=== PATIENT | female | born 1940 | race Caucasian/White ===

== ENCOUNTER 2017-12-07 14:37 | Observation (INO) | payer MEDICARE ==
[~2017-12-07] VITALS: Ht 160 cm; Wt 60.8 kg
[~2017-12-07 14:37] MED LIST: FIORINAL CAPSU1 EACH PO; IMODIUM; NORCO 10-325 T1 EACH; Z.0.DIAZEPAM5 MG PO; Z.0.PREMARIN1.25 MG PO; Z.0.ZOLOFT50 MG PO
[2017-12-07] MEDS ORDERED: ALBUTEROL SULF 0.083% NEB SOLN 3 ML NEB NEB STA (14:40)
[2017-12-07] MEDS ORDERED: IPRATROPIUM BROMIDE 0.02% 2.5 ML NEB NEB STA (14:40)
[2017-12-07] MEDS ORDERED: METHYLPREDNISOLONE SOD SUCC 125 MG/2ML VIAL IM STA ×2 (14:40→15:04)
[2017-12-07 14:53] LABS: BASOPHILS # (AUTO) 0.1 (0.0-0.1); BASOPHILS % 0.5 % (0.0-1.0); EOSINOPHILS # (AUTO) 0.3 (0.0-0.4); EOSINOPHILS % 2.4 % (0.0-6.0); HEMOGLOBIN 15.5 g/dL (12.0-16.0); LYMPHOCYTES # (AUTO) 2.4 (1.0-3.2); LYMPHOCYTES % 22.6 % (18.0-39.1); MEAN CORPUSCULAR HEMOGLOBIN 27.2 pg (28-32); MEAN CORPUSCULAR VOLUME 87.7 fL (81-99); MONOCYTES # (AUTO) 0.8 (0.2-0.8); MONOCYTES % 7.8 % (4.4-11.3); NEUTROPHILS # (AUTO) 6.9 (2.1-6.9); NEUTROPHILS % 66.4 % (38.7-80.0); PLATELET COUNT 137 x10e3/uL (140-360); RED CELL DISTRIBUTION WIDTH 15.5 % (11.7-14.4)
[2017-12-07] MEDS ORDERED: METHYLPREDNISOLONE SOD SUCC 125 MG/2ML VIAL IV STA (15:04)
[2017-12-07 15:11] LABS: ALANINE AMINOTRANSFERASE 16 IU/L (0-55); ALBUMIN 4.7 g/dL (3.5-5.0); ALBUMIN/GLOBULIN RATIO 1.3 (0.8-2.0); ALKALINE PHOSPHATASE 96 IU/L (40-150); ANION GAP 17.7 mmol/L (8-16); BLOOD UREA NITROGEN 10 mg/dL (7-26); BUN/CREATININE RATIO 13 (6-25); CALCIUM 9.5 mg/dL (8.4-10.2); CARBON DIOXIDE 21 mmol/L (22-29); CHLORIDE 107 mmol/L (98-107); CREATININE, SERUM 0.75 mg/dL (0.57-1.11); EST GLOMERULAR FILTRATION RATE > 60 ML/MIN (60-); GLUCOSE 108 mg/dL (74-118); POTASSIUM 3.7 mmol/L (3.5-5.1); SODIUM 142 mmol/L (136-145)
[2017-12-07] MEDS ORDERED: HYDROCODONE/APAP 5MG-325MG TAB PO ONE (15:15)
--- NOTE | 2017-12-07 15:29 | Diagnostic Imaging Report ---
PROCEDURE: A single AP view of the chest. COMPARISON: Patients [facility], [place], , CHEST SINGLE (PORTABLE), 04/02/2017, 8:22. INDICATIONS: SEVERE SHORTNESS OF BREATH FINDINGS: Lines/tubes: None. Lungs: The lungs are well inflated and grossly clear. There is no evidence of pneumonia or pulmonary edema. Pleura: There is no pleural effusion or pneumothorax. Heart and mediastinum: Cardiac silhouette is unremarkable. Pulmonary vasculature is normal. Bones: No acute bony abnormality. Stable partially visualized neural stimulator wires projecting in the mid thoracic spine IMPRESSION: 1. No acute cardiopulmonary abnormalities. Manolo Elizalde M.D. Dictated by: Manolo Elizalde M.D. on 12/07/2017 at 15:28 Electronically approved by: Manolo Elizalde M.D. on 12/07/2017 at 15:28
[2017-12-07] MEDS ORDERED: ZOLOFT50 MG PO (18:29)
[2017-12-07 18:33] LABS: CREATINE KINASE 84 IU/L (29-168)
[2017-12-07] MEDS ORDERED: SYMBICORT 80-10.2 GM INH (18:34)
[2017-12-07] MEDS: SODIUM CHLORIDE 0.9% 1000ML 1,000 ML IV SCH (19:12)
--- OUTSIDE RECORDS SUMMARY | 2017-12-07 19:30 | XMS REPORT ---
Author Author [facility] Address Unknown Phone Unavailable Care Team Providers Care Sports Athletic Trainer Name Role Phone FERN SANDOVAL Unavailable Unavailable Problems This patient has no known problems. Allergies, Adverse Reactions, Alerts This patient has no known allergies or adverse reactions. Medications This patient has no known medications. Results Test Description Test Time Test Comments Text Results Atomic Results Result Comments CHEST SINGLE (PORTABLE) [place] [id number] Patient Name: ANA MARIA DOBBINS MR #: [id number] : 1940 Age/Sex: 77/F Req #: [id number] Adm Physician: Ordered by: FERN SANDOVAL MD Report #: [id number] Location: ER Room/Bed: Procedure: [id number] DX/CHEST SINGLE (PORTABLE) Exam Date: 12/07/17 Exam Time: 1420 REPORT STATUS: Signed PROCEDURE: A single AP view of the chest. COMPARISON: [facility], , CHEST SINGLE (PORTABLE), 04/02/2017, 8:22. INDICATIONS: SEVERE SHORTNESS OF BREATH FINDINGS: Lines/tubes: None. Lungs: The lungs are well inflated and grossly clear. There is no evidence of pneumonia or pulmonary edema. Pleura: There is no pleural effusion or pneumothorax. Heart and mediastinum: Cardiac silhouette is unremarkable. Pulmonary vasculature is normal. Bones: No acute bony abnormality. Stable partially visualized neural stimulator wires projecting in the mid thoracic spine IMPRESSION: 1. No acute cardiopulmonary abnormalities. Willow Clinton M.D. Dictated by: Willow Clinton M.D. on 12/07/2017 at 15:28 Electronically approved by: Willow Clinton M.D. on 12/07/2017 at 15:28 Dictated By: WILLOW CLINTON MD [id number] Transcribed By: RENA on 12/07/17 1528 COPY TO: FERN SANDOVAL MD
[2017-12-07] MEDS: ALBUTEROL/IPRATROPIUM 3 ML NEB NEB SCH ×2 (19:55→23:40)
[2017-12-07] MEDS: METHYLPREDNISOLONE SOD SUCC 40 MG/ML VIAL IV SCH (20:30)
[2017-12-07] MEDS ORDERED: HYDRALAZINE HCL 20 MG/ML VIAL IV PRN (21:00)
[2017-12-08] VITALS: BP 136/77
[2017-12-08 00:28] VITALS: BP_SYST 135; BP_SYST 136; BP_DIAS 45; BP_DIAS 77
[2017-12-08] MEDS: SODIUM CHLORIDE 0.9% 1000ML 1,000 ML IV SCH ×2 (03:15→09:46)
[2017-12-08] MEDS: ALBUTEROL/IPRATROPIUM 3 ML NEB NEB SCH ×4 (03:15→14:45)
[2017-12-08] MEDS: METHYLPREDNISOLONE SOD SUCC 40 MG/ML VIAL IV SCH ×2 (03:15→09:38)
[2017-12-08 04:00] VITALS: BP 155/84
[2017-12-08] MEDS ORDERED: ACETAMIN/BUTALBITAL/CAFFEINE TAB PO PRN (06:00)
[2017-12-08] MEDS ORDERED: LEVOFLOXACIN 500 MG TAB PO SCH (06:00)
[2017-12-08 07:19] LABS: BASOPHILS % 0.1 % (0.0-1.0); HEMATOCRIT 43.4 % (34.2-44.1); HEMOGLOBIN 13.8 g/dL (12.0-16.0); LYMPHOCYTES # (AUTO) 0.7 (1.0-3.2); LYMPHOCYTES % 9.5 % (18.0-39.1); MEAN CORPUSCULAR HEMOGLOBIN 27.2 pg (28-32); MEAN CORPUSCULAR HGB CONC 31.8 g/dL (31-35); MEAN CORPUSCULAR VOLUME 85.6 fL (81-99); MONOCYTES # (AUTO) 0.2 (0.2-0.8); MONOCYTES % 2.2 % (4.4-11.3); NEUTROPHILS # (AUTO) 6.5 (2.1-6.9); NEUTROPHILS % 87.1 % (38.7-80.0); PLATELET COUNT 140 x10e3/uL (140-360); RED BLOOD COUNT 5.07 x10e6/uL (3.6-5.1); RED CELL DISTRIBUTION WIDTH 15.7 % (11.7-14.4)
[2017-12-08 07:36] LABS: ANION GAP 13.1 mmol/L (8-16); BLOOD UREA NITROGEN 10 mg/dL (7-26); BUN/CREATININE RATIO 16 (6-25); CALCIUM 9.2 mg/dL (8.4-10.2); CARBON DIOXIDE 23 mmol/L (22-29); CHLORIDE 111 mmol/L (98-107); CREATINE KINASE 124 IU/L (29-168); CREATININE, SERUM 0.62 mg/dL (0.57-1.11); EST GLOMERULAR FILTRATION RATE > 60 ML/MIN (60-); GLUCOSE 140 mg/dL (74-118); POTASSIUM 4.1 mmol/L (3.5-5.1); SODIUM 143 mmol/L (136-145)
[2017-12-08 08:47] VITALS: BP 127/78
[2017-12-08 13:04] VITALS: BP 142/84
[2017-12-08 16:05] VITALS: BP 142/84
== END 2017-12-08 16:09 | disposition home or self-care (01) ==
LOC: ER 14:41 → ERHOLD 18:06 → IMCU 23:35
PROVIDERS: ADMIT Internal Medicine; ATTEND Internal Medicine
DX: J45.41 Moderate persistent asthma with (acute) exacerbation (principal); I10 Essential (primary) hypertension; R09.02 Hypoxemia
CPT/HCPCS: 36415 ×2; 71045; 80048; 80053; 82550 ×2; 82553 ×2; 83880; 84484 ×2; 85025 ×2; 92950 ×2; 93005; 94640 ×4; 99285; G0378 ×2; J2920 ×2; J7030

== ENCOUNTER 2018-01-05 06:32 | Inpatient (IN) | payer MEDICARE ==
[~2018-01-05] VITALS: Ht 160 cm; Wt 61.2 kg
[~2018-01-05 06:32] MED LIST changes: +SYMBICORT 80-10.2 GM INH; +ZOLOFT50 MG PO
[2018-01-05] MEDS ORDERED: SODIUM CHLORIDE 0.9% 1000ML 1,000 ML IV STA (06:36)
[2018-01-05] MEDS ORDERED: ALBUTEROL SULF 0.083% NEB SOLN 3 ML NEB NEB STA (06:36)
[2018-01-05] MEDS ORDERED: METHYLPREDNISOLONE SOD SUCC 125 MG/2ML VIAL IV STA (06:36)
--- OUTSIDE RECORDS SUMMARY | 2018-01-05 06:36 | XMS REPORT | Continuity of Care Document ---
Author Author [facility] Organization [facility] Address [address] [place] [address] Phone Unavailable Care Team Providers Care Business Law Instructor Name Role Phone NANY JIMENEZ MD PCP Insurance Providers Guarantor Sindhu Dobbins Address [address] [place] [address] Email [email or web address] Payer Medicare A & B Policy Number [id number] Subscriber's Name Sindhu Dobbins Relationship 18 Self / Same As Patient Group Name RETIRED Effective Date 03 Advance Directives Directive Response Recorded Date/Time Does the patient have an advance directive? No 12/08/17 12:41am If yes, is advance directive on file with [facility]? No 12/08/17 12:41am If not on file with [facility] will patient provide a copy? Yes 12/08/17 12:41am Do you have a Directive to Physician? No 12/07/17 7:17pm Do you have a Medical Power of Wire Frame Dipper? No 12/07/17 7:17pm Do you have an out of hospital Do Not Resuscitate Order? No 12/07/17 7:17pm Do you have any special needs we should be aware of? No 12/07/17 7:17pm Do you have a support person here with you today? Yes 12/07/17 7:17pm Did patient receive Notice of Privacy Practices? Yes 12/07/17 7:17pm Did patient receive patient rights and responsibilities? Yes 12/07/17 7:17pm Problems Medical Problem Onset Date Status Bronchitis Unknown Acute COPD exacerbation Unknown Medications Current Home Medications Medication Dose Units Route Directions Days Qty Instructions Start Date Budesonide/Formoterol Fumarate (Symbicort 80-4.5 Mcg Inhaler) 10.2 Gm Hfa.aer.ad 2 Each Inhalation Twice A Day Butalbital/Aspirin/Caffeine (Fiorinal Capsule) 1 Each Capsule 1 Each Oral as needed Diazepam 5 Mg Tablet 5 Mg Oral 1/2 Prn Imodium as needed Sertraline Hcl (Zoloft) 50 Mg Tablet 100 Mg Oral Daily 30 Tab Past Home Medications Medication Directions Ordered Status Estrogens,Conjugated (Premarin) 1.25 Mg Tablet, 1.25 Mg Oral Daily Discontinued Hydrocodone Bit/Acetaminophen (Jamul 10-325 Tablet) 1 Each Tablet, as needed Discontinued Social History Social History Problem Response Recorded Date/Time Onset Date Status Hx Psychiatric Problems No 12/08/2017 12:41am Not Applicable Not Applicable Hx Depression Yes 12/08/2017 12:41am Not Applicable Not Applicable Hx Alcohol Use No 12/08/2017 12:41am Not Applicable Not Applicable Hx Substance Use Treatment No 12/08/2017 12:41am Not Applicable Not Applicable Smoking Status Start Date Stop Date Never Smoker Hospital Discharge Instructions No hospital discharge instruction information available. Plan of Care Discharge Date 12/08/17 4:09pm Disposition HOME, SELF-CARE Instructions/Education Provided COPD Prescriptions See Medication Section Referrals INO BARNEY MD (Internal Medicine) Entered Date: 12/08/2017 3:26pm Address: [address] [place] [id number] Additional Instructions/Education follow up with PCP/Dr Barney after discharge continue taking medications as prescribed Functional Status Query Response Date Recorded Assistive Devices None December 08, 2017 12:28am Ambulation Ability 1 person assist December 08, 2017 12:28am Toileting Ability Minimum Assistance December 08, 2017 12:28am Allergies, Adverse Reactions, Alerts Allergen Type Severity Reaction Status Last Updated Penicillin Allergy Mild SWELLING,ITCHING,REDNESS Active 04/02/17 Tiotropium Allergy Unknown SEVERE Active 12/07/17 Immunizations No immunization information available. Vital Signs Acute Vital Signs Vital Response Date/Time Temperature (Fahrenheit) 97.7 degrees F (97.6 - 99.5) 12/08/2017 4:05pm Pulse Pulse Rate (adult) 117 bpm (60 - 90) 12/08/2017 4:05pm Respiratory Rate 18 bpm (12 - 24) 12/08/2017 4:05pm Blood Pressure 142/84 mm Hg 12/08/2017 4:05pm Height 5 ft 3 in 12/07/2017 2:40pm Weight 134 lb 12/08/2017 8:48am Body Mass Index 23.7 kg/m^2 12/08/2017 8:48am Results Laboratory Results Test Name Result Units Flags Reference Collection Date/Time Result Date/ Time Comments Prothrombin Time 12.2 seconds 11.9-14.5 04/02/2017 8:40am 04/02/2017 10 :15am Prothromb Time International Ratio 0.86 04/02/2017 8:40am 2016 10:15am Oral Anticoagulant Therapy INR Values: 1. Low Intensity Therapy 1.5 - 2.0 2. Moderate Intensity Therapy 2.0 - 3.0 3. High Intensity Therapy(1) 2.5 - 3.5 4. High Intensity Therapy(2) 3.0 - 4.0 5. Panic Value INR > 5.0 Activated Partial Thromboplast Time 30.2 seconds 23.8-35.5 04/02/2017 8: 40am 04/02/2017 10:15am Urine Color YELLOW YELLOW 04/02/2017 9:48am 04/02/2017 10:15am Urine Clarity CLEAR CLEAR 04/02/2017 9:48am 04/02/2017 10:15am Urine Specific [place]y 1.005 L 1.010-1.025 04/02/2017 9:48am 2016 10:15am Urine pH 7 5 - 7 04/02/2017 9:48am 04/02/2017 10:15am Urine Leukocyte Esterase NEGATIVE NEGATIVE 04/02/2017 9:48am 2016 10:15am Urine Nitrite NEGATIVE NEGATIVE 04/02/2017 9:48am 04/02/2017 10:15am Urine Protein NEGATIVE NEGATIVE 04/02/2017 9:48am 04/02/2017 10:15am Urine Glucose (UA) NEGATIVE NEGATIVE 04/02/2017 9:48am 04/02/2017 10: 15am Urine Ketones NEGATIVE NEGATIVE 04/02/2017 9:48am 04/02/2017 10:15am Urine Urobilinogen 0.2 mg/dL 0.2 - 1 04/02/2017 9:48am 04/02/2017 10: 15am Urine Bilirubin NEGATIVE NEGATIVE 04/02/2017 9:48am 04/02/2017 10: 15am Urine Blood NEGATIVE NEGATIVE 04/02/2017 9:48am 04/02/2017 10:15am Urine WBC 0-5 /HPF 0-5 04/02/2017 9:48am 04/02/2017 10:19am Urine RBC 0-5 /HPF 0-5 04/02/2017 9:48am 04/02/2017 10:19am Urine Bacteria RARE /HPF NONE 04/02/2017 9:48am 04/02/2017 10:19am Urine Epithelial Cells RARE /LPF NONE 04/02/2017 9:48am 04/02/2017 10: 19am White Blood Count 7.40 x10e3/uL 4.8-10.8 12/08/2017 6:08am 12/08/2017 7 :25am Red Blood Count 5.07 x10e6/uL 3.6-5.1 12/08/2017 6:08am 12/08/2017 7: 25am Hemoglobin 13.8 g/dL 12.0-16.0 12/08/2017 6:08am 12/08/2017 7:25am Hematocrit 43.4 % 34.2-44.1 12/08/2017 6:08am 12/08/2017 7:25am Mean Corpuscular Volume 85.6 fL 81-99 12/08/2017 6:08am 12/08/2017 7: 25am Mean Corpuscular Hemoglobin 27.2 pg L 28-32 12/08/2017 6:08am 2017 7:25am Mean Corpuscular Hemoglobin Concent 31.8 g/dL 31-35 12/08/2017 6:12/08/2017 7:25am Red Cell Distribution Width 15.7 % H 11.7-14.4 12/08/2017 6:2017 7:25am Platelet Count 140 x10e3/uL 140-360 12/08/2017 6:12/08/2017 7: 25am Neutrophils (%) (Auto) 87.1 % H 38.7-80.0 12/08/2017 6:12/08/2017 7 :25am Lymphocytes (%) (Auto) 9.5 % L 18.0-39.1 12/08/2017 6:12/08/2017 7: 25am Monocytes (%) (Auto) 2.2 % L 4.4-11.3 12/08/2017 6:12/08/2017 7: 25am Eosinophils (%) (Auto) 0.0 % 0.0-6.0 12/08/2017 6:12/08/2017 7: 25am Basophils (%) (Auto) 0.1 % 0.0-1.0 12/08/2017 6:12/08/2017 7:25am IM GRANULOCYTES % 1.1 % H 0.0-1.0 12/08/2017 6:12/08/2017 7:25am Neutrophils # (Auto) 6.5 2.1-6.9 12/08/2017 6:12/08/2017 7:25am Lymphocytes # (Auto) 0.7 L 1.0-3.2 12/08/2017 6:12/08/2017 7: 25am Monocytes # (Auto) 0.2 0.2-0.8 12/08/2017 6:12/08/2017 7:25am Eosinophils # (Auto) 0.0 0.0-0.4 12/08/2017 6:12/08/2017 7:25am Basophils # (Auto) 0.0 0.0-0.1 12/08/2017 6:12/08/2017 7:25am Absolute Immature Granulocyte (auto 0.08 x10e3/uL 0-0.1 12/08/2017 6: 12/08/2017 7:25am Sodium Level 143 mmol/L 136-145 12/08/2017 6:05am 12/08/2017 7:52am Potassium Level 4.1 mmol/L 3.5-5.1 12/08/2017 6:05am 12/08/2017 7:52am Chloride Level 111 mmol/L H 98-107 12/08/2017 6:05am 12/08/2017 7:52am Carbon Dioxide Level 23 mmol/L 22-29 12/08/2017 6:05am 12/08/2017 7: 52am Anion Gap 13.1 mmol/L 8-12/08/2017 6:05am 12/08/2017 7:52am Blood Urea Nitrogen 10 mg/dL 712/08/2017 6:05am 12/08/2017 7:52am Creatinine 0.62 mg/dL 0.57-1.11 12/08/2017 6:05am 12/08/2017 7:52am BUN/Creatinine Ratio 16 6-12/08/2017 6:05am 12/08/2017 7:52am Estimat Glomerular Filtration Rate > 60 ML/MIN 6012/08/2017 6:05 7:52am Ranges were taken from the National Kidney Disease Education Program and the National Kidney Foundation literature. Reference ranges: 60 or greater: Normal 16-59 (for 3 consecutive months): Chronic kidney disease 15 or less: Kidney failure Glucose Level 140 mg/dL H 74-118 12/08/2017 6:05am 12/08/2017 7:52am Calcium Level 9.2 mg/dL 8.4-10.2 12/08/2017 6:05am 12/08/2017 7:52am Total Bilirubin 0.4 mg/dL 0.2-1.2 12/07/2017 2:40pm 12/07/2017 3:14pm Aspartate Amino Transf (AST/SGOT) 25 IU/L 5-34 12/07/2017 2:40pm 2017 3:14pm Alanine Aminotransferase (ALT/SGPT) 16 IU/L 0-55 12/07/2017 2:40pm 3:14pm Total Protein 8.2 g/dL H 6.5-8.1 12/07/2017 2:40pm 12/07/2017 3:14pm Albumin 4.7 g/dL 3.5-5.0 12/07/2017 2:40pm 12/07/2017 3:14pm Globulin 3.5 g/dL 2.3-3.5 12/07/2017 2:40pm 12/07/2017 3:14pm Albumin/Globulin Ratio 1.3 0.8-2.0 12/07/2017 2:40pm 12/07/2017 3: 14pm Alkaline Phosphatase 96 IU/L 40-150 12/07/2017 2:40pm 12/07/2017 3: 14pm B-Type Natriuretic Peptide 92.1 pg/mL 0-100 12/07/2017 2:40pm 2017 3:28pm Creatine Kinase 124 IU/L 29-168 12/08/2017 6:05am 12/08/2017 7:52am Creatine Kinase MB 5.50 ng/mL H 0-5.0 12/08/2017 6:05am 12/08/2017 8: 31am Troponin I 0.14 ng/mL 0.0-0.78 12/08/2017 6:05am 12/08/2017 8:31am Procedures No procedure information available. Encounters Encounter Location Arrival/Admit Date Discharge/Depart Date Attending Provider Discharged Inpatient (obs) [facility] 12/07/17 6:06pm 4:09pm INO BARNEY MD Departed Emergency Room [facility] 04/02/17 7:46am 11:18am MARLINE GARCIA MD Departed Emergency Room [facility] 03/27/17 11:30am 03/27 3:00pm FERN SANDOVAL MD
[2018-01-05] MEDS ORDERED: METHYLPREDNISOLONE SOD SUCC 125 MG/2ML VIAL ONE (06:41)
[2018-01-05] MEDS ORDERED: IPRATROPIUM BROMIDE 0.02% 2.5 ML NEB NEB ONE (06:45)
[2018-01-05 07:00] LABS: BASOPHILS % 0.2 % (0.0-1.0); EOSINOPHILS # (AUTO) 0.6 (0.0-0.4); HEMATOCRIT 46.5 % (34.2-44.1); HEMOGLOBIN 14.5 g/dL (12.0-16.0); LYMPHOCYTES # (AUTO) 2.9 (1.0-3.2); LYMPHOCYTES % 23.8 % (18.0-39.1); MEAN CORPUSCULAR HEMOGLOBIN 27.9 pg (28-32); MEAN CORPUSCULAR HGB CONC 31.2 g/dL (31-35); MEAN CORPUSCULAR VOLUME 89.4 fL (81-99); MONOCYTES % 8.4 % (4.4-11.3); NEUTROPHILS # (AUTO) 7.5 (2.1-6.9); NEUTROPHILS % 62.4 % (38.7-80.0); PLATELET COUNT 152 x10e3/uL (140-360); RED CELL DISTRIBUTION WIDTH 14.9 % (11.7-14.4)
[2018-01-05] MEDS ORDERED: AZITHROMYCIN 500MG/NS 250 ML 250 ML IV STA (07:03)
[2018-01-05] MEDS ORDERED: CEFTRIAXONE SOD 1 GM VIAL IV STA (07:03)
--- NOTE | 2018-01-05 07:03 | Diagnostic Imaging Report ---
CHEST SINGLE (PORTABLE), 01/05/2018 6:36 AM Technique: CHEST SINGLE (PORTABLE) Comparison: 04/02/2017 Clinical history: Cough, shortness of breath Findings: Stable portable appearance of the heart, mediastinum, lungs, and pleural spaces. Neurostimulator leads are noted overlying the thoracic spine. Impression: 1. Stable cardiomediastinal silhouette. 2. No consolidation or edema. No effusion or pneumothorax. Signed by: Dr Mary Ann Jane MD on 01/05/2018 7:00 AM
[2018-01-05 07:08] LABS: INR 0.94; PARTIAL THROMBOPLASTIN TIME 26.4 seconds (23.8-35.5); PROTHROMBIN TIME 11.8 seconds (11.9-14.5)
[2018-01-05 07:16] LABS: ALANINE AMINOTRANSFERASE 18 IU/L (0-55); ALBUMIN 4.5 g/dL (3.5-5.0); ALBUMIN/GLOBULIN RATIO 1.4 (0.8-2.0); ALKALINE PHOSPHATASE 94 IU/L (40-150); ANION GAP 14.4 mmol/L (8-16); BLOOD UREA NITROGEN 8 mg/dL (7-26); BUN/CREATININE RATIO 11 (6-25); CALCIUM 9.4 mg/dL (8.4-10.2); CARBON DIOXIDE 26 mmol/L (22-29); CHLORIDE 102 mmol/L (98-107); CREATINE KINASE 124 IU/L (29-168); CREATININE, SERUM 0.71 mg/dL (0.57-1.11); EST GLOMERULAR FILTRATION RATE > 60 ML/MIN (60-); GLUCOSE 123 mg/dL (74-118); MAGNESIUM 2.3 MG/DL (1.3-2.1); POTASSIUM 3.4 mmol/L (3.5-5.1); SODIUM 139 mmol/L (136-145)
[2018-01-05 07:22] LABS: B-TYPE NATRIURETIC PEPTIDE2 88.3 pg/mL (0-100)
[2018-01-05] MEDS ORDERED: ASPIRIN 81 MG CHEW TAB PO ONE (07:45)
[2018-01-05] MEDS ORDERED: FAMOTIDINE 20 MG/2 ML VIAL IV SCH (07:45)
[2018-01-05] MEDS ORDERED: CEFTRIAXONE SOD 1 GM VIAL IV SCH (07:45)
[2018-01-05] MEDS ORDERED: ALBUTEROL SULF 0.083% NEB SOLN 3 ML NEB NEB PRN (07:45)
[2018-01-05] MEDS ORDERED: POTASSIUM CHLORIDE 20MEQ/15ML UDC PO ONE (07:45)
[2018-01-05] MEDS ORDERED: LEVALBUTEROL HCL SOLN NEBU 1.25 MG/3 ML NEB INH ONE (08:00)
[2018-01-05] MEDS ORDERED: DEXAMETHASONE SOD PHOS 10 MG/1 ML VIAL IV ONE (08:00)
[2018-01-05 08:15] LABS: BILIRUBIN,URINE NEGATIVE (NEGATIVE); KETONES,URINE NEGATIVE (NEGATIVE); LEUKOCYTE ESTERASE ,URINE NEGATIVE (NEGATIVE); NITRITE,URINE NEGATIVE (NEGATIVE); URINE UROBILINOGEN 0.2 mg/dL (0.2 - 1)
[2018-01-05 08:16] LABS: CLARITY,URINE CLEAR (CLEAR); COLOR,URINE YELLOW (YELLOW); PROTEIN,URINE DIPSTICK 1+ (NEGATIVE)
[2018-01-05 08:28] LABS: BACTERIA,URINE FEW /HPF; EPITHELIAL CELLS,URINE FEW /LPF; RBC,URINE 0-5 /HPF (0-5); WBC,URINE (MAN) 0-5 /HPF (0-5)
[2018-01-05] MEDS: ACETAMIN/BUTALBITAL/CAFFEINE TAB PO PRN ×2 (08:40→14:09)
[2018-01-05] MEDS ORDERED: ASPIRIN 81 MG ENTERIC COATED PO SCH (09:00)
[2018-01-05] MEDS ORDERED: AZITHROMYCIN 500MG/NS 250 ML 250 ML IV SCH (09:00)
[2018-01-05 09:12] LABS: ABG HCO3 23 mmol/L (23-28); ABG PCO2 42 mmHg (41-51); ABG PH 7.34 (7.31-7.41); ABG PO2 71 mmHg (80-105)
[2018-01-05 09:30] VITALS: BP 143/80
[2018-01-05 12:34] VITALS: BP 156/79
[2018-01-05] MEDS ORDERED: IPRATROPIUM BROMIDE 0.02% 2.5 ML NEB NEB SCH (13:00)
[2018-01-05] MEDS: METHYLPREDNISOLONE SOD SUCC 125 MG/2ML VIAL IV SCH ×2 (14:18→21:58)
[2018-01-05] MEDS: IPRATROPIUM BROMIDE 0.02% 2.5 ML NEB NEB SCH ×2 (14:24→20:40)
[2018-01-05 16:51] VITALS: BP 137/66
--- NOTE | 2018-01-05 17:16 | Diagnostic Imaging Report ---
EXAM: CT Chest WITHOUT contrast INDICATION: \S\recurrent bronchospasm, r/o bronchiectasis \S\[id number] \S\1604 COMPARISON: Chest x-ray of the same date TECHNIQUE: Chest was scanned utilizing a multidetector helical scanner from the lung apex through the level of the adrenal glands without administration of IV contrast. Absence of intravenous contrast decreases sensitivity for detection of lymphadenopathy and vascular pathology. Coronal and sagittal reformations were obtained. Routine protocol was performed. IV CONTRAST: None COMPLICATIONS: None RADIATION DOSE: Total DLP: 365.15 mGy*cm Estimated effective dose: (DLP x 0.014 x size factor) mSv CTDIvol has been reviewed. It is below the limits set by the Radiation Protocol Committee (RPC). FINDINGS: LINES/ TUBES: Distal leads of spine stimulator device terminates at T8 level. LUNGS AND AIRWAYS: No evidence of bronchiectasis. Bilateral upper lobe small focal areas of groundglass opacity with mild interlobular septal thickening in these areas. Airways are normal. PLEURA: The pleural spaces are clear. HEART AND MEDIASTINUM: The thyroid gland is normal. No mediastinal, hilar or axillary lymphadenopathy. The heart is normal in size.. There is no pericardial effusion. Mitral valve calcification. UPPER ABDOMEN: Unremarkable. BONES: The visualized bony thorax is within normal limits. SOFT TISSUES: Pectus excavatum chest wall deformity. IMPRESSION: Bilateral upper lobe focal areas of groundglass opacity with mild intralobular septal thickening. This may represent bacterial or acute interstitial pneumonia in the appropriate clinical setting. Pulmonary alveolar proteinosis, pulmonary hemorrhage, or drug/radiation-induced pneumonitis are also in the differential considerations, although less likely. No evidence of bronchiectasis. Signed by: Dr. Donis Mast MD on 01/05/2018 5:12 PM
[2018-01-05 17:24] LABS: CREATINE KINASE MB 9.5 ng/mL (0-5.0)
[2018-01-05 20:00] VITALS: BP 138/80
[2018-01-05] MEDS: HEPARIN SOD (PORCINE) 5,000 UNIT/ML VIAL SC SCH (21:00)
[2018-01-06] VITALS (7 sets, daily range): BP systolic 123–147; BP diastolic 58–87
--- NOTE | 2018-01-06 02:58 | Consultation ---
DATE OF CONSULTATION: January 05, 2018 PULMONARY MEDICINE CONSULT REFERRING PHYSICIAN: Dr. Sánchez REASON FOR REFERRAL: Shortness of breath. HISTORY: Ms. Holly is a pleasant 77-year-old female with shortness of breath. Patient with recent spells of shortness of breath. She had spells about 7 months ago. A month ago, she presented to emergency room with shortness of breath, and today she presented again. PATIENT WITH ADULT-ONSET ALLERGIES THAT WERE PROVEN BY PATCH TESTING. However, she never had any breathing issues her entire life. No history of polio. No history of any significant childhood illnesses. She was diagnosed with asthma about 1 year ago. She has daily bronchitis, but mostly clear phlegm. Patient recently on Ventolin, Symbicort 160 two puffs twice a day, and Spiriva. Patient was lifetime nonsmoker and never had significant exposure to biofuels. As patient is scared that she is getting worse, she comes to the emergency room. CT and chest x-ray were done. Chest x-ray was mostly unremarkable on one-view. However, on CAT scan, patient was seen with very small apical ground-glass opacities, borderline bronchiectasis, pectus excavatum abnormality, significant kyphotic configuration of the spine. Echocardiogram done showed 60% to 65% LVEF and was mostly otherwise unremarkable. BNP was 88. ABG, 7.34/42/71. She presents for hospitalization in the inpatient wing, and I am consulted. 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 MEDICATIONS: Medication list reviewed per electronic record. Includes inhalers as above. ALLERGIES: PENICILLINS. SOCIAL HISTORY: No alcohol, no drinking, no drugs. Patient grown up in urban [facility] environment. 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 She lives with her [id number] as her son was killed in 1998. Patient with 4 children total with 3 of them still alive. She is independent in her lifestyle in all matters and does not use any assist devices to ambulate. FAMILY HISTORY: Noncontributory. REVIEW OF SYSTEMS: GENERAL: No weight changes. OPHTHALMOLOGIC: No double vision. ENT: No dry mouth. ENDOCRINE: No known thyroid disease. PULMONARY: No childhood asthma, no hemoptysis. CARDIAC: No KS. GI: No constipation. : No blood in urine. MUSCULOSKELETAL: No known rheumatoid arthritis. There is mild hyperlaxity of a few joints. She is born with a pectus excavatum. IMMUNOLOGIC: No other connective tissue disease is known. PSYCHIATRIC: No active depression now, although there is history of it. OBJECTIVE: VITAL SIGNS: Afebrile, vital signs noted per electronic record. GENERAL: In no acute distress, alert and calm when talking. HEENT: Normocephalic, atraumatic. NECK: Supple. Throat midline. LUNGS: Bilateral air entry is moderate to good, few scant rales, no daphney wheezes. Prolonged expiratory phase. CARDIOVASCULAR: S1 and S2. No murmurs, rubs, or gallops. ABDOMEN: Soft, nontender, although there is mild sensitivity. EXTREMITIES: No clubbing, no cyanosis, no edema. INTEGUMENT: No rash, no purpura. LABS: Include 3.4 potassium, 8 BUN, 0.7 creatinine, 26 bicarbonate. 12 white count, 47 hematocrit, 152,000 platelets. Albumin is 4.5, total protein is 7.8. Lactic acid 21.7. IMPRESSION AND PLAN: 1. Dyspnea, multifactorial. 2. Acute crisis of pulmonary disease. 3. Lactic acid, possibly due to beta-agonist treatment, rule out other condition such as sepsis. 4. Mild uncompensated hypercapnic respiratory acidosis. 5. 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 6. Very mild hypermobility of joints. 7. PROVEN ALLERGIES PER PATCH TESTING HISTORY. 8. Possible asthma with exacerbation. 9. Daily bronchitis. 10. Abnormal chest radiography with bilateral ground-glass small patchy opacities. 11. Tachycardia, not otherwise specified, but appears to be sinus rhythm. 12. History of depression. 13. Arthritis, no high indication of rheumatoid or other connective tissue disease. 14. Also depression and migraines. Continue steroids, but wean rapidly since this may not be an atopy-driven disease that we are dealing with. It will be reasonable to check immunoglobulin E level to assess the extent that this could be atopy driven. Bronchodilators continue. Check a good electrocardiogram with a good baseline to interpret the rhythm. Check thyroid screening given tachycardia. Echocardiogram, right ventricular systolic pressure estimated at 34 mmHg, but she will need serial followup over bindery machine tender of her right heart and pulmonary pressures. Patient requires outpatient polysomnogram to rule out sleep apnea or hypoventilation. She is also recommended for maintenance of physical fitness. For now it is reasonable to treat as possible asthma although as Dr. Sánchez, the primary attending suspects it is not a definite diagnosis. Will continue to follow up closely. The ground-glass opacities in the upper lobes will need repeat computerized tomography scanning in few months to ensure this is not infection or gastroesophageal reflux disease related among other possibilities. Will continue to follow up closely. Thank you very much, Dr. Sánchez for allowing me the chance to participate in the care of Ms. Holly. Please call with any questions. Job#: [id number] DR HINTON
[2018-01-06 06:51] LABS: BASOPHILS % 0.1 % (0.0-1.0); HEMATOCRIT 42.2 % (34.2-44.1); HEMOGLOBIN 13.7 g/dL (12.0-16.0); LYMPHOCYTES # (AUTO) 1.1 (1.0-3.2); LYMPHOCYTES % 7.9 % (18.0-39.1); MEAN CORPUSCULAR HEMOGLOBIN 27.8 pg (28-32); MEAN CORPUSCULAR HGB CONC 32.5 g/dL (31-35); MEAN CORPUSCULAR VOLUME 85.6 fL (81-99); MONOCYTES # (AUTO) 0.9 (0.2-0.8); MONOCYTES % 6.9 % (4.4-11.3); NEUTROPHILS # (AUTO) 11.5 (2.1-6.9); NEUTROPHILS % 84.6 % (38.7-80.0); PLATELET COUNT 151 x10e3/uL (140-360); RED BLOOD COUNT 4.93 x10e6/uL (3.6-5.1); RED CELL DISTRIBUTION WIDTH 14.8 % (11.7-14.4)
[2018-01-06 07:16] LABS: ALANINE AMINOTRANSFERASE 15 IU/L (0-55); ALBUMIN 3.5 g/dL (3.5-5.0); ALBUMIN/GLOBULIN RATIO 1.2 (0.8-2.0); ALKALINE PHOSPHATASE 69 IU/L (40-150); ANION GAP 11.8 mmol/L (8-16); BLOOD UREA NITROGEN 17 mg/dL (7-26); BUN/CREATININE RATIO 23 (6-25); CALCIUM 9.7 mg/dL (8.4-10.2); CARBON DIOXIDE 25 mmol/L (22-29); CHLORIDE 104 mmol/L (98-107); CHOL/HDL RATIO 2.6 (3.0-3.6); CHOLESTEROL 222 MD/DL (0-199); CREATININE, SERUM 0.73 mg/dL (0.57-1.11); EST GLOMERULAR FILTRATION RATE > 60 ML/MIN (60-); GLUCOSE 135 mg/dL (74-118); HDL CHOLESTEROL 86 MG/DL (40-60); LDL CHOLESTEROL 115 MG/DL (60-130); MAGNESIUM 2.2 MG/DL (1.3-2.1); PHOSPHORUS 3.3 MG/DL (2.3-4.7); POTASSIUM 3.8 mmol/L (3.5-5.1); SODIUM 137 mmol/L (136-145); TRIGLYCERIDES 105 MG/DL (0-149)
[2018-01-06] MEDS: IPRATROPIUM BROMIDE 0.02% 2.5 ML NEB NEB SCH ×3 (07:21→20:20)
[2018-01-06] MEDS: LEVOFLOXACIN 500MG/D5W 100ML 100 ML IV SCH (08:00)
[2018-01-06] MEDS: HEPARIN SOD (PORCINE) 5,000 UNIT/ML VIAL SC SCH ×2 (09:00→22:01)
[2018-01-06] MEDS: METHYLPREDNISOLONE SOD SUCC 40 MG/ML VIAL IV SCH ×2 (09:00→22:42)
[2018-01-06] MEDS ORDERED: SODIUM CHLORIDE 0.9% 250ML 250 ML ONE (09:51)
--- NOTE | 2018-01-06 13:44 | Progress Note ---
DATE: January 06, 2018 PULMONARY MEDICINE PROGRESS NOTE SUBJECTIVE: Mrs. Holly was seen and examined at bedside. She currently is with 96% oxygen saturation. She is on 2 L per minute by nasal cannula. Patient was not on home oxygen as she did not qualify in the past. Patient feels a little bit better today compared to yesterday citing that there is not a lot of improvement that has gone on. She still has less dyspnea. She is doing less while she is here in the hospital, mainly in bed. REVIEW OF SYSTEMS: No bleeding. No rash. OBJECTIVE VITALS: Afebrile. Vital signs noted per electronic record. GENERAL: No acute distress. Alert and calm. HEENT: Normocephalic and atraumatic. NECK: Supple. Throat midline. LUNGS: Bilateral air entry. Decreased breath sounds minimally. Few rales. CARDIOVASCULAR: S1 and S2. No murmurs, rubs or gallops. ABDOMEN: Soft and nontender. EXTREMITIES: No clubbing. No cyanosis. There is no edema. INTEGUMENT: No rash. No purpura. LABS: Potassium 4.9, BUN 17, creatinine 0.2, bicarbonate 25. White count 13, hematocrit 42, and platelets 141,000. IMPRESSION 1. Exacerbation of pulmonary lung disease. 2. Thoracic cage abnormality, suggested restriction based on computerized tomography assessment. 3. Possible asthma with exacerbation. 4. Allergies, intermittent. 5. Mild uncompensated respiratory acidosis. 6. Possible pneumonia, sepsis. 7. Chronic bronchitis, not otherwise specified. 8. Tachycardia. Will review the EKG. This may be driven by pulmonary disorder. Furthermore, the patient remains on nebulizer treatments intermittently. Continue to wean steroids rapidly. We will follow up the Ig level and the alpha-1 antitrypsin level. Patient will get mobilized and will see how much functionality she has. Will follow along closely. Job#: [id number] [facility]
[2018-01-07 00:16] VITALS: BP 141/78
[2018-01-07] MEDS: IPRATROPIUM BROMIDE 0.02% 2.5 ML NEB NEB SCH ×2 (02:10→06:44)
[2018-01-07 05:03] VITALS: BP 130/77
[2018-01-07 08:00] VITALS: BP 131/74
[2018-01-07] MEDS: METHYLPREDNISOLONE SOD SUCC 40 MG/ML VIAL IV SCH (09:14)
[2018-01-07] MEDS: LEVOFLOXACIN 500MG/D5W 100ML 100 ML IV SCH (09:14)
[2018-01-07] MEDS: HEPARIN SOD (PORCINE) 5,000 UNIT/ML VIAL SC SCH (09:16)
[2018-01-07 10:02] VITALS: BP 131/74
[2018-01-07 12:00] VITALS: BP 140/73
--- NOTE | 2018-01-07 12:11 | Discharge Summary ---
FINAL DIAGNOSIS: Acute respiratory distress. SECONDARY DIAGNOSES 1. Possible pneumonia. 2. 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 3. Possible asthma with exacerbation. CONSULTANTS: Dr. Cao, computer security coordinator. PROCEDURES/STUDIES PERFORMED: Chest computerized tomography. HISTORY: Per H and P. HOSPITAL COURSE: The patient was admitted. Initially, the patient had dry cough and subsequently with nebulizer treatment it became nonproductive. CT scan shows ground-glass opacity in the upper lobes. Will need a repeat CT scan in a few months. The patient responded well to nebulizer treatments, steroids, and antibiotics. I have discussed with Dr. Cao today. Will go ahead and discharge the patient home since she is doing better. She does have nebulizer machine at home. Will give her 3 more days of p.o. Levaquin and Medrol Dosepak. The patient will follow up with her PCP and also her computer security coordinator. The patient was seen and examined today. It took 32 minutes total to discharge this patient. JAYME SAUER M.D. Job#: [id number] [facility]
[2018-01-07] MEDS ORDERED: PREDNIS (13:29)
[2018-01-07] MEDS ORDERED: prednisone PO (13:29)
[2018-01-07] MEDS ORDERED: PREDNISONE 10 MG PO (13:29)
--- NOTE | 2018-01-07 15:13 | Progress Note ---
DATE: January 07, 2018 PULMONARY MEDICINE PROGRESS NOTE SUBJECTIVE: Ms. Holly was seen and examined at bedside. She continues to have steady progress. She feels getting close to baseline now. No overt wheezes. Still with subjective bronchodilator responsiveness with inhalers. I counseled her on future planning regarding avoiding readmissions. The patient continues to eat better. REVIEW OF SYSTEMS: No headaches. No bleeding. OBJECTIVE VITALS: Afebrile. Vital signs noted per electronic record. GENERAL: In no acute distress. Alert and calm. HEENT: Normocephalic and atraumatic. NECK: Supple. Throat midline. LUNGS: Bilateral air entry. No overt wheezes, just mildly decreased breath sounds throughout. CARDIOVASCULAR: S1 and S2. No murmurs, rubs or gallops. ABDOMEN: Soft and nontender. EXTREMITIES: No clubbing. No cyanosis. No edema. INTEGUMENT: No rash. No purpura. IMPRESSION AND PLAN 1. Asthma with exacerbation. 2. Concomitant allergies. 3. Disorder of thoracic cage, functional kyphosis, as well as pectus excavatum abnormality. 4. Low functional endurance. 5. Proven allergies. 6. History of depression. Continue steroid weaning. I gave the patient a backup prednisone prescription after she gets out for emergencies. Continue bronchodilators, Spiriva, Symbicort, and Proair after she leaves. Aggressive exercise and therapy programs recommended after discharge. She will need surveillance of right heart and pulmonary pressures. Outpatient polysomnogram is recommended. Antibiotics are also being given to her to finalize pneumonia treatment. She will need repeat CT radiography in 3-4 months to ensure that this infiltrate resolves. Will follow along closely. Job#: [id number] [employer]
== END 2018-01-07 13:43 | disposition home or self-care (01) | DRG 194 ==
LOC: ER 06:32 → ERHOLD 07:55 → MED/SURG3 09:03
PROVIDERS: ADMIT Internal Medicine; ATTEND Internal Medicine
DX: J18.9 Pneumonia, unspecified organism (principal); J45.41 Moderate persistent asthma with (acute) exacerbation; E87.4 Mixed disorder of acid-base balance; J42 Unspecified chronic bronchitis; F32.9 Major depressive disorder, single episode, unspecified; K21.9 Gastro-esophageal reflux disease without esophagitis; G43.909 Migraine, unspecified, not intractable, without status migrainosus; M16.0 Bilateral primary osteoarthritis of hip; M19.011 Primary osteoarthritis, right shoulder; M40.209 Unspecified kyphosis, site unspecified; Q67.6 Pectus excavatum; R00.0 Tachycardia, unspecified; E87.6 Hypokalemia; Z28.21 Immunization not carried out because of patient refusal; Z88.0 Allergy status to penicillin; Z77.22 Contact with and (suspected) exposure to environmental tobacco smoke (acute) (chronic)
CPT/HCPCS: 36415; 71045; 71250; 80053; 80061; 81001; 82103; 82550; 82553; 82785; 82805; 83605; 83735; 83880; 84100; 84443; 84484; 85025; 85610; 85730; 86431; 87040; 87086; 87400; 93005; 93306; 94640; 96360; 96365; 96372; 96374; 96376; 99284; J0456; J0696; J1100; J1644; J1956; J2920; J2930; J7050

== ENCOUNTER 2019-05-29 17:34 | Emergency (ER) | payer MEDICARE ==
[~2019-05-29] VITALS: Ht 160 cm; Wt 61.2 kg
[~2019-05-29 17:34] MED LIST changes: +PREDNIS; +PREDNISONE 10 MG PO; +prednisone PO
--- OUTSIDE RECORDS SUMMARY | 2019-05-29 17:39 | XMS REPORT | Encounter Summary ---
Author Organization Unknown Address [address] [place] [address] Phone [phone] Care Team Providers Care Metal Checker Name Role Phone Dr. Anshul Vargas 3 [phone] Anshul Vargas MD 3 [phone] Clarence Coughlin MD 107 [phone] Anthony Mccann 114 [phone] [facility] 124 [phone] Reason for Visit Right leg problem; Right knee pain/problem; Right ankle pain Instructions 1. Immunization refused 2. Body mass index 20-24 - normal 3. Depressive disorder Wellbutrin XL 150 mg 24 hr tablet, extended release 4. Pain in right knee 5. Pain of right ankle joint 6. Pruritic rash triamcinolone acetonide 0.1 % topical cream Discussion Note have started additional wellbutrin Patient educational handouts: No information available. Plan of Care Patient Instructions meds as directed rtc 2 weeks Reminders Provider Appointments Return to Office on or around 01/23/2019 Anshul Vargas MD Lab None recorded. Referral None recorded. Procedures None recorded. Surgeries None recorded. Imaging None recorded. Medications Name Start Date Butalbital Compound with Codeine 30 mg-50 mg-325 mg-40 mg capsule TAKE 1 CAPSULE BY MOUTH EVERY DAY NEEDED diazepam 5 mg tablet TAKE 1 TABLET BY MOUTH EVERY DAY NEEDED estradiol 0.5 mg tablet TAKE 1 TABLET BY MOUTH EVERY DAY nystatin 100,000 unit/gram topical cream APPLY TO AFFECTED AREA TWICE A DAY oseltamivir 75 mg capsule Take 1 capsule twice a day by oral route. sertraline 100 mg tablet TAKE 1 TABLET BY MOUTH EVERY DAY Symbicort 160 mcg-4.5 mcg/actuation HFA aerosol inhaler Inhale 2 puffs twice a day by inhalation route for 30 days. triamcinolone acetonide 0.1 % topical cream APPLY A THIN LAYER TO THE AFFECTED AREA(S) BY TOPICAL ROUTE 2 TIMES PER DAY Ventolin HFA 90 mcg/actuation aerosol inhaler INHALE 2 PUFFS BY MOUTH EVERY 4 HOURS Wellbutrin XL 150 mg 24 hr tablet, extended release Take 1 tablet every day by oral route. Medications Administered None recorded. Vitals Height Weight BMI Blood Pressure 5 ft 3 in 122.8 lbs 21.8 kg/m2 134/82 mm[Hg] Lab Results None recorded. Allergies Code Code System Name Reaction Severity Status Onset Penicillins Active Problems Name Status Onset Date Source Depressive Disorder Active Migraine Active Bronchitis Active Asthma Active Generalized Headache Active History of Hormone Replacement (HRT) Active Procedures Date Name Performed by 10/23/2015 Hernia Repair Information not available 10/23/2011 Hand Surgery Information not available 10/23/1979 Hysterectomy (Partial) Information not available 10/23/1970 Tonsilectomy/adenoids Information not available Vaccine List Vaccine Type pneumococcal, unspecified formulation 12/21/2017 Social History Smoking Status Never Smoker Past Encounters 01/09/2019 Immunization Refused; Body Mass Index 20-24 - Normal; Depressive Disorder; Pain in Right Knee; Pain of Right Ankle Joint; Pruritic Rash Anshul Vargas MD: [address] [place] [address], Ph. History of Present Illness Note:1 week h/o R knee /ankle pain controlled with fiorinal with codeine
remains depressed without suicidal/homicidal thoughts,can only tolerate 50 mgs s ertraline
3 yr h/o bilat ant fore leg rash,otc meds ineffective Review of Systems:ROS as noted in the HPI Review of Systems None recorded. Physical Exam General Adult Exam (Female), Musculoskeletal and Joint Exam Reported By: Patient Musculoskeletal:: Right Knee: crepitus; post pain. Right Ankle: ROM good, no objective synovitis, no tenderness, no warmth, no erythema, no pain on palpation Skin: Inspection and palpation: rash; bilat ant foreleg rash
--- OUTSIDE RECORDS SUMMARY | 2019-05-29 17:39 | XMS REPORT | Encounter Summary ---
Author Organization Unknown Address [address] [place] [address] Phone [phone] Reason for Visit Medical Complaint Instructions 1. Allergic rhinitis Medrol (Maciej) 4 mg tablets in a dose pack allergies: care instructions fluticasone 50 mcg/actuation nasal spray,suspension Discussion Note See handout Plan of Care Patient Instructions See handout Reminders Provider Appointments None recorded. Lab None recorded. Referral None recorded. Procedures None recorded. Surgeries None recorded. Imaging None recorded. Medications Name Start Date Butalbital Compound with Codeine 30 mg-50 mg-325 mg-40 mg capsule TK ONE C PO QD estradiol 0.5 mg tablet fluticasone 50 mcg/actuation nasal spray,suspension [place] 2 spray(s) each nostril EVERY DAY by intranasal route. Medrol (Maciej) 4 mg tablets in a dose pack Take by oral route as directed on package methocarbamol 500 mg tablet TK 1 T PO BID tramadol 50 mg tablet Medications Administered None recorded. Vitals Height Weight BMI Blood Pressure 5 ft 3 in 120 lbs 21.3 130/72 Lab Results None recorded. Allergies Name Reaction Severity Onset Penicillins Itching Mild to Moderate Problems Name Status Onset Date Source Allergic Rhinitis Active Encounter Procedures Date Name Performed by Tonsillectomy Information not available Hernia Repair W/mesh Information not available Hysterectomy Information not available Vaccine List None recorded. Social History Smoking Status Never Smoker Past Encounters 09/04/2016 Allergic Rhinitis [facility]EL [facility] [address] [facility] [place] [address], Ph. History of Present Illness Ear Complaint Reported By: Patient HPI: Location: left. Quality: ears feel full/plugged, muffled. Severity: same. Duration: constant. Onset/Timing: still present. Context: no sick contacts, no recent swimming/water in ear, no exposure to second hand smoke, no head trauma, not grinding teeth, no recent air travel. Modifying factors: does not hurt to lie on, or pull on ear, does not hurt to chew, OTC medication. Associated Symptoms: no discharge from the ears, no hearing loss, no nose/sinus problems, no popping noise in the ears, no ringing in the ears, no fever, no chills, no earache, no vertigo, no headache, dizziness Review of Systems:ROS as noted in the HPI Review of Systems Basic Reported By: Patient Physical Exam Adult Basic Constitutional: General Appearance: healthy-appearing, well-nourished, well-developed. Level of Distress: NAD. Ambulation: ambulating normally Psychiatric: Mental Status: active and alert. Orientation: to time, to place, to person Eyes: Lids and Conjunctivae: non-injected, no discharge, no pallor. Pupils: PERRLA. Corneas: grossly intact. Lens: clear. Sclerae: non-icteric. Vision: acuity grossly intact Cmx-Dhhc-Ixwbv-Throat: Ears: no lesions on external ear, no outer ear tenderness, EACs clear, TMs clear, middle ear fluid. Nose: no lesions on external nose, nares patent, no septal deviation, nasal passages clear, no sinus tenderness, no nasal discharge; boggy turbinates. Lips, Teeth, and Gums: no mouth or lip ulcers, no bleeding gums, normal dentition. Oropharynx: moist mucous membranes, no erythema, no exudates, tonsils not enlarged Neck: Lymph Nodes: no cervical LAD, no supraclavicular LAD Lungs: Respiratory effort: no dyspnea, no tachypnea, no use of accessory muscles, no intercostal retractions. Auscultation: breath sounds normal Cardiovascular: Heart Auscultation: RRR, no murmurs Neurologic: Gait and Station: normal gait, normal station Skin: Inspection and palpation: no rash, no lesions, no ulcer, no abnormal nevi, no induration, no nodules, good turgor, no jaundice
--- OUTSIDE RECORDS SUMMARY | 2019-05-29 17:39 | XMS REPORT | Encounter Summary ---
Author Organization Unknown Address [address] [place] [address] Phone [phone] Care Team Providers Care Fuel Verification Technician Name Role Phone Dr. Anshul Vargas 3 [phone] Clarence Coughlin MD 107 [phone] Anthony Mccann 114 [phone] Reason for Visit Asthma; Depressive disorder; skin problem/rash Instructions 1. Asthma Ventolin HFA 90 mcg/actuation aerosol inhaler 2. Depressive disorder sertraline 100 mg tablet 3. Pruritic rash triamcinolone acetonide 0.1 % topical cream 4. At risk for falls preventing falls: care instructions 5. Immunization refused 6. Body mass index 20-24 - normal 7. Restless legs Valium 5 mg tablet Discussion Note: None recorded. Plan of Care Reminders Provider Appointments None recorded. Lab None recorded. Referral None recorded. Procedures None recorded. Surgeries None recorded. Imaging None recorded. Medications Name Start Date bupropion HCl XL 150 mg 24 hr tablet, extended release TAKE 1 TABLET BY MOUTH EVERY DAY Butalbital Compound with Codeine 30 mg-50 mg-325 mg-40 mg capsule TAKE 1 CAPSULE BY MOUTH EVERY DAY NEEDED estradiol 0.5 mg tablet TAKE 1 TABLET BY MOUTH EVERY DAY Imodium PRN nystatin 100,000 unit/gram topical cream APPLY TO AFFECTED AREA TWICE A DAY sertraline 100 mg tablet TAKE 1 TABLET BY MOUTH EVERY DAY Symbicort 160 mcg-4.5 mcg/actuation HFA aerosol inhaler Inhale 2 puffs twice a day by inhalation route for 30 days. triamcinolone acetonide 0.1 % topical cream APPLY A THIN LAYER TO THE AFFECTED AREA(S) BY TOPICAL ROUTE 2 TIMES PER DAY Valium 5 mg tablet Take 1 tablet as needed by oral route. Ventolin HFA 90 mcg/actuation aerosol inhaler INHALE 2 PUFFS BY MOUTH EVERY 4 HOURS Medications Administered None recorded. Vitals Height Weight BMI Blood Pressure 5 ft 3 in 124 lbs 22 kg/m2 130/82 mm[Hg] Lab Results None recorded. Allergies Code [...] History Smoking Status Never Smoker Past Encounters 04/08/2019 Asthma; Depressive Disorder; Pruritic Rash; At Risk for Falls; Immunization Refused; Body Mass Index 20-24 - Normal; Restless Legs Anshul Vargas MD: [address] [place] [address], Ph. History of Present Illness Note:f/u chronic conditions ,needs refill albuterol which controls asthma<div> requesting d/c wellbutrin-not beneficial and resumption sertraline,remains depre ssed without suicidal/homicidal thoughts</div><div>has d/c gabapentin would like to resume valium for restless leg control</div><div>c/o recurrence leg rash < /div> Review of Systems:ROS as noted in the HPI Review of Systems None recorded. Physical Exam Cardiology Exam Reported By: Patient Constitutional: General Appearance: well-developed, appears stated age. Level of Distress: comfortable Psychiatric: Mental Status: alert, normal affect. Orientation: oriented to time, place, and person. Insight: good judgment Eyes: Lids and Conjunctivae: non-injected, anicteric, no discharge, no pallor, no arcus senilis, no xanthelasma. Pupils: PERRLA Neck: Neck: supple, trachea midline, no masses, FROM. Carotid Arteries: bilateral normal upstroke, no bruits, no thrills. Cervical Lymph Nodes: non tender, not enlarged. Thyroid: not enlarged, non tender, no nodules Lungs: Respiratory Effort: unlabored. Chest Exam: normal curvature, no thoracic deformity, no chest wall tenderness. Percussion: resonant. Auscultation: clear, no wheezing, no rales, no rhonchi Cardiovascular: Precordial Exam: non displaced focal PMI, no heaves, no precordial thrills. Rate And Rhythm: regular. Heart Sounds: normal S1, physiologically split S2, no rub, no gallop, no click. Systolic Murmur: not heard. Diastolic Murmur: not heard. Extremities: no cyanosis, no edema, no peripheral signs of emboli Skin: Inspection and Palpation: warm and dry, rash; bl foreleg rash. Nails: no clubbing
--- OUTSIDE RECORDS SUMMARY | 2019-05-29 17:39 | XMS REPORT | Encounter Summary ---
Author Organization Unknown Address [address] [place] [address] Phone [phone] Care Team Providers Care University Professor Name Role Phone Dr. Anshul Vargas 3 [phone] Clarence Coughlin MD 107 [phone] Anthony Mccann 114 [phone] [facility] 124 [phone] Reason for Visit Depressive disorder Instructions 1. Body mass index 20-24 - normal 2. Immunization refused 3. Depressive disorder 4. Pruritic rash 5. Pain in right knee 6. Pain of right ankle joint 7. Restless legs gabapentin 100 mg capsule 8. Migraine Butalbital Compound with Codeine 30 mg-50 mg-325 mg-40 mg capsule Discussion Note: None recorded. Patient educational handouts: No information available. Plan of Care Patient Instructions continue all meds except d/c diazepam,start gabapentin ,rtc 1 month Reminders Provider Appointments Return to Office on or around 02/22/2019 Anshul Vargas MD Lab None recorded. Referral [...] TAKE 1 TABLET BY MOUTH EVERY DAY gabapentin 100 mg capsule 1 capsule at night Imodium PRN nystatin 100,000 unit/gram topical cream APPLY TO AFFECTED AREA TWICE A DAY sertraline 100 mg tablet Take 0.5 tablets every day by oral route. Symbicort 160 mcg-4.5 mcg/actuation HFA aerosol inhaler [...] BMI Blood Pressure 5 ft 3 in 120.8 lbs 21.4 kg/m2 138/70 mm[Hg] Lab Results None recorded. Allergies Code [...] History Smoking Status Never Smoker Past Encounters 01/23/2019 Body Mass Index 20-24 - Normal; Immunization Refused; Depressive Disorder; Pruritic Rash; Pain in Right Knee; Pain of Right Ankle Joint; Restless Legs; Migraine Anshul Vargas MD: [address] [place] [address], Ph. 01/09/2019 Immunization Refused; Body Mass Index 20-24 - Normal; Depressive Disorder; Pain in Right Knee; Pain of Right Ankle Joint; Pruritic Rash Anshul Vargas MD: [address] [place] [address], Ph. History of Present Illness Note:f/u depression /skin rash/R knee/ ankle pain,compliant with meds
mood no worse no current depressive feelings/suicidal /homicidal thoughts
rash resolved
knee/ankle pain -asymptomatic
requesting change valium -takes for restless leg syndrome-not well tolerated
Review of Systems:ROS as noted in the HPI Review of Systems None recorded. Physical Exam General Adult Exam (Female) Reported By: Patient Musculoskeletal:: Joints, Bones, and Muscles: ; R knee /ankle full pain free rom Skin: Inspection and palpation: ; resolved bl fore leg rash
--- OUTSIDE RECORDS SUMMARY | 2019-05-29 17:39 | XMS REPORT | Continuity of Care Document ---
Author Author [employer] Address Unknown Phone Unavailable Care Team Providers Care Corporate Account Executive Name Role Phone [employer] Information [employer] Unavailable Unavailable Problems Problem Status Onset Date Classification Date Reported Comments Source Allergic rhinitis 09/04/2016 Diagnosis 09/04/2016 [facility] Allergic Rhinitis Problem 09/04/2016 [facility] Medications Medication Details Route Status Patient Instructions Ordering Provider Order Date Source Aspirin 325 MG / butalbital 50 MG / Caffeine 40 MG / Codeine Phosphate 30 MG Oral Capsule Butalbital Compound with Codeine 30 mg-50 mg-325 mg-40 mg capsule TK ONE C PO QD Active [facility] Estradiol 0.5 MG Oral Tablet estradiol 0.5 mg tablet Active [facility] Fluticasone propionate 0.05 MG/ACTUAT Metered Dose Nasal [place] fluticasone 50 mcg/actuation nasal spray,suspension [place] 2 spray(s) each nostril EVERY DAY by intranasal route. Active [facility] Medrol (Maciej) 4 mg tablets in a dose pack Medrol (Maciej) 4 mg tablets in a dose pack Take by oral route as directed on package Active [facility] Methocarbamol 500 MG Oral Tablet methocarbamol 500 mg tablet TK 1 T PO BID Active [facility] tramadol hydrochloride 50 MG Oral Tablet tramadol 50 mg tablet Active [facility] Allergies, Adverse Reactions, Alerts Substance Category Reaction Severity Reaction type Status Date Reported Comments Source Penicillins Itching Mild to Moderate Allergy to substance 09/04/2016 [facility] Immunizations No Data Provided for This Section Results No Data Provided for This Section Pathology Reports No Data Provided for This Section Diagnostic Reports No Data Provided for This Section Consultation Notes No Data Provided for This Section Discharge Summaries No Data Provided for This Section History and Physicals No Data Provided for This Section Vital Signs Vital Sign Value Date Comments Source Diastolic (mm Hg) 72 09/04/2016 [facility] Height 63 09/04/2016 [facility] Systolic (mm Hg) 130 09/04/2016 [facility] Weight 120 09/04/2016 [facility] Encounters Location Location Details Encounter Type Encounter Number Reason For Visit Attending Provider ADM Date DC Date Status Source [place] - [facility] - [id number] Darius Rolando, KEYSEATING MACHINE SET UP OPERATOR: [address], [place] [address], Ph. [id number] Darius Rolando 09/04/2016 [facility] Procedures Procedure Code Date Perfomer Comments Source Tonsillectomy [facility] Hernia Repair W/mesh [facility] Hysterectomy [facility] Assessment and Plan No Data Provided for This Section Plan of Care No Data Provided for This Section Social History Social History Date Source Smoking Status Never Smoker 09/04/2016 [facility] Family History No Data Provided for This Section Advance Directives No Data Provided for This Section Functional Status No Data Provided for This Section
--- NOTE | 2019-05-29 19:34 | Diagnostic Imaging Report ---
KNEE RIGHT THREE VIEWS - 3 views HISTORY: Pain COMPARISON: None available. FINDINGS: Bones: No acute displaced fracture. Osseous alignment is within normal limits. Joints: The joint spaces are well-maintained. Soft tissues: The soft tissues appear unremarkable. IMPRESSION: No acute radiographic abnormality. Signed by: Dr. Donis Mast MD on 05/29/2019 7:30 PM
[2019-05-29] MEDS ORDERED: HYDROCODONE/APAP 7.5MG-325MG 1 EA TAB PO PRN (21:30)
== END 2019-05-29 21:17 | disposition home or self-care (01) ==
LOC: ER 17:34
DX: M25.561 Pain in right knee (principal); J45.909 Unspecified asthma, uncomplicated; Z88.0 Allergy status to penicillin

== ENCOUNTER 2019-07-18 18:18 | Emergency (ER) | payer MEDICARE ==
[~2019-07-18] VITALS: Ht 160 cm; Wt 61.2 kg
--- OUTSIDE RECORDS SUMMARY | 2019-07-18 18:23 | XMS REPORT | Continuity of Care Document ---
Author Author [employer] Address Unknown Phone Unavailable Care Team Providers Care [employer]ot Agent Name Role Phone [employer] Information [employer] Unavailable Unavailable Problems Problem Status Onset Date [...] Fluticasone propionate 0.05 MG/ACTUAT Metered Dose Nasal [place] fluticasone 50 mcg/actuation nasal spray,suspension [place] 2 spray(s) each nostril EVERY DAY by [...] Date Status Source [place] - [facility] - [id number] Darius Rolando, LIBRARY MEDIA SPECIALIST: [address], [place] [address], Ph. [id number] Darius Rolando 09/04/2016 [facility] Procedures Procedure Code [...]
--- OUTSIDE RECORDS SUMMARY | 2019-07-18 18:23 | XMS REPORT | Encounter Summary ---
Author Organization Unknown Address [address] [place] [address] Phone [phone] Care Team Providers Care Paint Stock Clerk Name Role Phone Dr. Anshul Vargas 3 [phone] Clarence Coughlin MD 107 [phone] Anthony Mccann 114 [phone] Reason for Visit Migraine; Depressive disorder Instructions 1. Body mass index 20-24 - normal 2. Depressive disorder sertraline 100 mg tablet 3. Restless legs Valium 5 mg tablet 4. Migraine Butalbital Compound with Codeine 30 mg-50 mg-325 mg-40 mg capsule 5. Influenza vaccination declined 6. Abdominal pain go to emergency room Discussion Note: None recorded. Plan of Care Patient Instructions advised attend ER stat Reminders Provider Appointments None recorded. Lab None recorded. Referral None recorded. Procedures None recorded. Surgeries None recorded. Imaging None recorded. Medications Name Start Date Butalbital Compound with Codeine 30 mg-50 mg-325 mg-40 mg capsule Take 1 capsule every day by oral route for 30 days. estradiol 0.5 mg tablet TAKE 1 TABLET BY MOUTH EVERY DAY Imodium PRN nystatin 100,000 unit/gram topical cream APPLY TO AFFECTED AREA TWICE A DAY sertraline 100 mg tablet Take 1 tablet every day by oral route for 90 days. Symbicort 160 mcg-4.5 mcg/actuation HFA aerosol inhaler Inhale 2 puffs twice a day by inhalation route for 30 days. triamcinolone acetonide 0.1 % topical cream APPLY A THIN LAYER TO THE AFFECTED AREA(S) BY TOPICAL ROUTE 2 TIMES PER DAY Valium 5 mg tablet Take 1 tablet as needed by oral route for 30 days. Ventolin HFA 90 mcg/actuation aerosol inhaler INHALE 2 PUFFS BY MOUTH EVERY 4 HOURS Medications Administered None recorded. Vitals Height Weight BMI Blood Pressure 5 ft 3 in 125 lbs 22.1 kg/m2 128/84 mm[Hg] Lab Results None recorded. Allergies Code [...] Type pneumococcal, unspecified formulation 12/21/2017 Social History Tobacco Smoking Status Never Smoker Past Encounters 07/18/2019 Body Mass Index 20-24 - Normal; Depressive Disorder; Restless Legs; Migraine; Influenza Vaccination Declined; Abdominal Pain Anshul Vargas MD: [address] [place] [address], Ph. History of Present Illness Shoulder pain Reported By: Patient Note:f/u depression/restless leg syndrome/migraine compliant with meds, good and bad days without feelings depression /homicidal /suicidal thoughts<div>4 d h/o abdominal after eating sprouts ,anorexia /nausea without vomiting,normal bm to day</div><div>h/o appendectomy/hernia repair</div> Review of Systems:ROS as noted in the HPI Review of Systems None recorded. Physical Exam Brief Abdominal Pain Exam Reported By: Patient Constitutional: General Appearance: well-developed, well-nourished, healthy-appearing, alert, oriented, NAD, mucous membranes moist Cardiovascular: Heart Auscultation: S1 present, S2 present, no murmurs, no click Lungs: Lungs: clear to auscultation bilaterally, no wheezing, no crackles Abdomen: Inspection and Palpation: soft, bowel sounds 4 quadrants, non-distended, RLQ tenderness, LLQ tenderness, rebound tenderness; mainly R rebound
[2019-07-18 19:45] LABS: BASOPHILS % 0.4 % (0.0-1.0); EOSINOPHILS # (AUTO) 0.2 (0.0-0.4); EOSINOPHILS % 3.2 % (0.0-6.0); HEMATOCRIT 41.9 % (34.2-44.1); HEMOGLOBIN 13.3 g/dL (12.0-16.0); LYMPHOCYTES # (AUTO) 1.8 (1.0-3.2); LYMPHOCYTES % 32.9 % (18.0-39.1); MEAN CORPUSCULAR HEMOGLOBIN 27.7 pg (28-32); MEAN CORPUSCULAR HGB CONC 31.7 g/dL (31-35); MEAN CORPUSCULAR VOLUME 87.1 fL (81-99); MONOCYTES # (AUTO) 0.6 (0.2-0.8); MONOCYTES % 10.1 % (4.4-11.3); NEUTROPHILS # (AUTO) 2.9 (2.1-6.9); PLATELET COUNT 152 x10e3/uL (140-360); RED BLOOD COUNT 4.81 x10e6/uL (3.6-5.1); RED CELL DISTRIBUTION WIDTH 14.6 % (11.7-14.4)
[2019-07-18 19:55] LABS: BILIRUBIN,URINE SMALL (NEGATIVE); CLARITY,URINE SL CLOUDY (CLEAR); COLOR,URINE YELLOW (YELLOW); KETONES,URINE NEGATIVE (NEGATIVE); LEUKOCYTE ESTERASE ,URINE NEGATIVE (NEGATIVE); NITRITE,URINE NEGATIVE (NEGATIVE); PROTEIN,URINE DIPSTICK NEGATIVE (NEGATIVE); URINE UROBILINOGEN 0.2 mg/dL (0.2 - 1)
[2019-07-18 19:59] LABS: ALANINE AMINOTRANSFERASE 12 IU/L (0-55); ALBUMIN 3.5 g/dL (3.5-5.0); ALBUMIN/GLOBULIN RATIO 1.3 (0.8-2.0); ALKALINE PHOSPHATASE 75 IU/L (40-150); BLOOD UREA NITROGEN 11 mg/dL (7-26); BUN/CREATININE RATIO 14 (6-25); CALCIUM 9.2 mg/dL (8.4-10.2); CARBON DIOXIDE 28 mmol/L (22-29); CHLORIDE 104 mmol/L (98-107); CREATININE, SERUM 0.77 mg/dL (0.57-1.11); EST GLOMERULAR FILTRATION RATE > 60 ML/MIN (60-); GLUCOSE 109 mg/dL (74-118); SODIUM 141 mmol/L (136-145)
[2019-07-18 20:14] LABS: BACTERIA,URINE MODERATE /HPF; EPITHELIAL CELLS,URINE FEW /LPF
[2019-07-18] MEDS ORDERED: IOPAMIDOL 370 MG/ML 200 ML INFUS..BTL INJ ONE (20:39)
[2019-07-18] MEDS ORDERED: SODIUM CHLORIDE 0.9% 50ML 50 ML ONE (20:39)
--- NOTE | 2019-07-18 21:16 | Diagnostic Imaging Report ---
EXAM: CT Abdomen and Pelvis WITH contrast INDICATION: ^RLQ PAIN X4 DAYS, DENIES N/V/D ^[id number] ^2035 COMPARISON: CT dated 10/12/2016 TECHNIQUE: Abdomen and pelvis were scanned utilizing a multidetector helical scanner from the lung base to the pubic symphysis after administration of IV contrast. Coronal and sagittal reformations were obtained. Dose modulation, iterative reconstruction, and/or weight based adjustment of the mA/kV was utilized to reduce the radiation dose to as low as reasonably achievable. Routine protocol was performed. Scan was performed when during portal venous phase. IV CONTRAST: 100 mL of Isovue-370 ORAL CONTRAST: Water COMPLICATIONS: None RADIATION DOSE: Total DLP: 298.45 mGy*cm Estimated effective dose: (DLP x 0.015 x size factor) mSv CTDIvol has been reviewed. It is below the limits set by the Radiation Protocol Committee (RPC). FINDINGS: LINES and TUBES: Spine stimulator device implanted in subcutaneous left back. LOWER THORAX: Partially seen pectus excavatum chest wall deformity. HEPATOBILIARY: No focal hepatic lesions. Fat deposition along the falciform ligament. No biliary ductal dilation. GALLBLADDER: No radio-opaque stones or sludge. No wall thickening. SPLEEN: No splenomegaly. PANCREAS: No focal masses or ductal dilatation. ADRENALS: No adrenal nodules KIDNEYS/URETERS: Kidneys enhance symmetrically. No hydronephrosis. No cystic or solid mass lesions. No stones. GI TRACT: No abnormal distention or evidence of bowel obstruction. Wall thickening of distal ileal loops in right lower quadrant. There are diverticula within the colon without evidence of diverticulitis. Appendix is surgically absent. PELVIC ORGANS/BLADDER: Unremarkable. LYMPH NODES: No lymphadenopathy. VESSELS: Unremarkable. PERITONEUM / RETROPERITONEUM: No free air or fluid. BONES: Again seen L5 pars defects with grade 1 L5-S1 spondylolisthesis. There is also grade 1/2 retrolisthesis of L5 in relation to L4, unchanged. SOFT TISSUES: Unremarkable. IMPRESSION: 1. Wall thickening of the ileal loops in right lower abdomen, concerning for infectious/inflammatory ileitis. 2. Colonic diverticulosis without evidence of diverticulitis. Signed by: Dr. Donis Mast MD on 07/18/2019 9:13 PM
[2019-07-18] MEDS ORDERED: FLAGYL500 MG PO (22:01)
[2019-07-18] MEDS ORDERED: ZOFRAN4 MG SL (22:01)
[2019-07-18] MEDS ORDERED: CIPRO500 MG PO (22:01)
== END 2019-07-18 22:24 | disposition home or self-care (01) ==
LOC: ER 18:18
DX: R10.31 Right lower quadrant pain (principal); K57.30 Diverticulosis of large intestine without perforation or abscess without bleeding
CPT/HCPCS: 36415; 74177; 80053; 81001; 85025; 99284; Q9967

== ENCOUNTER 2022-06-01 16:41 | Emergency (ER) | payer MEDICARE ==
[~2022-06-01] VITALS: Ht 160 cm; Wt 61.2 kg
[~2022-06-01 16:41] MED LIST changes: +CIPRO500 MG PO; +FLAGYL500 MG PO; +ZOFRAN4 MG SL
[2022-06-01] MEDS ORDERED: SYMBICORT 16010.2 GM INH (17:12)
[2022-06-01] MEDS ORDERED: ALBUTEROL1.25 MG/3 NEB (17:12)
[2022-06-01] MEDS ORDERED: PREDNISONE50 MG PO (17:12)
[2022-06-01] MEDS ORDERED: PREDNISONE 10 MG TAB PO ONE (17:15)
== END 2022-06-01 17:45 | disposition home or self-care (01) ==
LOC: ER 17:25
DX: R06.02 Shortness of breath (principal); J44.1 Chronic obstructive pulmonary disease with (acute) exacerbation; Z87.01 Personal history of pneumonia (recurrent)
CPT/HCPCS: 99282; J7512

== ENCOUNTER 2022-12-12 15:10 | Emergency (ER) | payer MEDICARE, OTHER ==
[~2022-12-12] VITALS: Ht 160 cm; Wt 61.2 kg
[~2022-12-12 15:10] MED LIST changes: +ALBUTEROL1.25 MG/3 NEB; +PREDNISONE50 MG PO; +SYMBICORT 16010.2 GM INH
[2022-12-12] MEDS ORDERED: HYDROCODONE/APAP 5MG-325MG TAB PO ONE (15:30)
[2022-12-12] MEDS ORDERED: TETANUS/DIPHTHERIA TOX ADULT 0.5 ML SYR IM ONE (17:00)
== END 2022-12-12 17:09 | disposition home or self-care (01) ==
LOC: ER 15:17
DX: S00.83XA Contusion of other part of head, initial encounter (principal); R51.9 Headache, unspecified; S80.01XA Contusion of right knee, initial encounter; W01.0XXA Fall on same level from slipping, tripping and stumbling without subsequent striking against object, initial encounter; Y93.01 Activity, walking, marching and hiking; Y92.89 Other specified places as the place of occurrence of the external cause; J45.909 Unspecified asthma, uncomplicated
CPT/HCPCS: 70450; 72125; 90714; 99283